=== PATIENT | male | born 1990 | race African-American/Black ===

== ENCOUNTER 2021-12-23 13:05 | Emergency (ER) | payer MEDICAID ==
[~2021-12-23] VITALS: Ht 167.6 cm; Wt 89.0 kg
[2021-12-23 13:13] VITALS: BP 156/98
== END 2021-12-23 14:48 | disposition left against medical advice (07) ==
LOC: ER 13:40
DX: Z53.21 Procedure and treatment not carried out due to patient leaving prior to being seen by health care provider (principal)
CPT/HCPCS: 99281